=== PATIENT | male | born 1980 | race Caucasian/White ===

== ENCOUNTER 2024-07-07 15:29 | Emergency (ER) | payer SELFPAY ==
[2024-07-07] MEDS ORDERED: Sodium Chloride 0.9% 10 ML Syringe FLUSH PRN (15:45)
[2024-07-07 15:54] LABS: BASOPHILS ABSOLUTE AUTO 0.1 x10-3/uL (0.0-0.3); EOSINOPHILS PERCENT AUTO 0.2 % (0.1-6.8); HEMATOCRIT 49.9 % (38.3-50.1); HEMOGLOBIN 17.1 g/dL (12.9-17.7); LYMPHOCYTES ABSOLUTE AUTO 2.4 x10-3/uL (0.5-4.5); LYMPHOCYTES PERCENT AUTO 27.3 % (15.8-45.3); MEAN CORPUSCULAR HGB CONC 34.3 g/dL (28.7-35.3); MEAN CORPUSCULAR VOLUME 96.1 fL (80.8-98.7); MONOCYTES ABSOLUTE AUTO 0.6 x10-3/uL (0.0-1.2); NEUTROPHILS ABSOLUTE AUTO 5.6 x10-3/uL (1.7-6.9); NEUTROPHILS PERCENT AUTO 64.5 % (40.3-71.8); PLATELET COUNT,PLT 140 x10(3)uL (117-477); RED BLOOD CELL COUNT 5.19 x10(6)uL (3.90-5.90); RED CELL DISTRIBUTION WIDTH 14.8 % (12.4-15.0); WHITE BLOOD CELL COUNT,WBC 8.7 x10-3/uL (3.2-10.1)
[2024-07-07] MEDS ORDERED: LORazepam 2 MG/ML SDV IVPUSH PRN (15:54)
[2024-07-07] MEDS: Sodium Chloride 0.9% 1,000 ML IV SCH (15:55)
[2024-07-07 15:57] LABS: BLOOD UREA NITROGEN,BUN 17 mg/dL (7-18); BUN/CREATININE RATIO 21.3 (9-20); CALCIUM 8.8 mg/dL (8.6-10.2); CARBON DIOXIDE,CO2 24 mmol/L (21-32); CHLORIDE,CL 96 mmol/L (100-110); CREATININE 0.8 mg/dL (0.70-1.30); ESTIMATED GFR 112 mL/min (>60); GLUCOSE RANDOM 108 mg/dL (80-116); POTASSIUM,K 3.6 mmol/L (3.5-5.3); SODIUM,NA 138 mmol/L (135-145)
[2024-07-07] MEDS: Prochlorperazine 10 MG/2 ML SDV IVPUSH ONE (15:59)
[2024-07-07] MEDS: Ondansetron 4 MG/2 ML SDV IVPUSH ONE (16:04)
[2024-07-07 16:07] LABS: ETHANOL BLOOD MEDICAL 0.35 % (<0.03)
[2024-07-07 16:08] LABS: A/G RATIO 1.1; ALANINE AMINOTRANSFERASE,ALT 126 U/L (12-36); ALKALINE PHOSPHATASE 87 IU/L (56-112); AMYLASE 102 U/L (25-115); BILIRUBIN TOTAL 0.8 mg/dL (0.1-1.3); PROTEIN TOTAL,TP 7.8 g/dL (6.0-8.0)
[2024-07-07] MEDS: LORazepam 2 MG/ML SDV IVPUSH STA (16:08)
[2024-07-07 16:14] LABS: ASPARTATE AMNIOTRANSFERASE,AST 182 IU/L (5-25)
[2024-07-07] MEDS: Thiamine 200 MG/2 ML MDV IVPUSH ONE (16:27)
[2024-07-07] MEDS: Iopamidol 755 Mg/ML 100 ML Bottle IV SCH (16:28)
[2024-07-07] MEDS: Pantoprazole 40 MG Vial IVPUSH ONE (16:29)
== END 2024-07-07 18:10 | disposition home or self-care (01) ==
LOC: FB.ED 15:29
DX: K70.9 Alcoholic liver disease, unspecified (principal); K86.89 Other specified diseases of pancreas; N18.9 Chronic kidney disease, unspecified; F10.129 Alcohol abuse with intoxication, unspecified; Z79.899 Other long term (current) drug therapy
CPT/HCPCS: 36415; 71045; 74177; 80053; 80307; 82150; 83690; 85025; 96361; 96374; 96375; 99285; J0780; J2060; J2405; J2470; J3411; J7030; Q9967